=== PATIENT | male | born 1990 | race Caucasian/White ===

== ENCOUNTER 2022-10-18 10:47 | Emergency (ER) | payer OTHER, BC ==
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
[2022-10-18 12:40] LABS: Appearance,Urine Clear (Clear); Bilirubin,Urine Negative (Negative); Blood,Urine Negative (Negative); Color,Urine Yellow; Glucose,Urine (UA) Negative (Negative); Ketones,Urine Negative (Negative); Leukocyte Esterase,Urine Small (Negative); Mucus,Urine Rare /hpf; Nitrite,Urine Negative (Negative); Protein,Urine Negative (Negative); RBC,Urine 1 /hpf (0-5); Specific Gravity,Urine 1.012 (1.001-1.035); Squamous Epithelial Cell,Urine <1 /hpf (0-4); Urobilinogen,Urine <2.0 mg/dL (<2.0); WBC,Urine 5 /hpf (0-5)
[2022-10-18 13:05] VITALS: BP 134/94; PULSE 79; RESP 16; TEMP 98.2
== END 2022-10-18 13:10 | disposition home or self-care (01) ==
LOC: EC 10:47
DX: S09.90XA Unspecified injury of head, initial encounter (principal); M25.531 Pain in right wrist; F17.200 Nicotine dependence, unspecified, uncomplicated; V49.40XA Driver injured in collision with unspecified motor vehicles in traffic accident, initial encounter
CPT/HCPCS: 70450; 71046; 72125; 81001; 99285